=== PATIENT | male | born 2000 | race Caucasian/White ===

== ENCOUNTER 2018-03-06 14:58 | Outpatient (CLI) | payer BC ==
[~2018-03-06 14:58] MED LIST: IBUP-1984 PO
== END 2018-03-06 15:35 | disposition home or self-care (01) ==
LOC: ORTHO 14:58
PROVIDERS: ATTEND Nurse Practitioner Family
DX: S93.491A Sprain of other ligament of right ankle, initial encounter (principal); S93.431A Sprain of tibiofibular ligament of right ankle, initial encounter; X58.XXXA Exposure to other specified factors, initial encounter; Y93.89 Activity, other specified; Y92.89 Other specified places as the place of occurrence of the external cause; Y99.8 Other external cause status
CPT/HCPCS: 73630; 99213

== ENCOUNTER 2018-03-27 09:29 | Outpatient (CLI) | payer BC ==
[~2018-03-27] VITALS: Ht 167.6 cm; Wt 150.0 kg
[2018-03-27 09:30] VITALS: BP 110/66
== END 2018-03-27 10:11 | disposition home or self-care (01) ==
LOC: ORTHO 09:29
PROVIDERS: ATTEND Nurse Practitioner Family
DX: S93.491D Sprain of other ligament of right ankle, subsequent encounter (principal); S93.431D Sprain of tibiofibular ligament of right ankle, subsequent encounter; X58.XXXD Exposure to other specified factors, subsequent encounter
CPT/HCPCS: 73630; 99213